=== PATIENT | female | born 1995 | race American Indian/Alaskan Native ===

== ENCOUNTER 2017-09-24 16:27 | Emergency (ER) | payer MEDICAID ==
[2017-09-24 17:00] VITALS: BP 124/68
--- NOTE | 2017-09-24 17:38 | Emergency Department Report ---
Suture/Staple Removal - [facility] Chief Complaint: Laceration/Recheck/Suture Stated Complaint: STUTURE REMOVAL Time Seen by Provider: 09/24/17 17:07 When Sutures or [place] Placed: >14 Days Ago Wound Location: Forehead ED Review of Systems ROS: Stated complaint: STUTURE REMOVAL Other details as noted in HPI Constitutional: denies: chills, fever Eyes: denies: eye pain, eye discharge, vision change ENT: denies: ear pain, throat pain Respiratory: denies: cough, shortness of breath, wheezing Cardiovascular: denies: chest pain, palpitations Endocrine: no symptoms reported Gastrointestinal: denies: abdominal pain, nausea, diarrhea Genitourinary: denies: urgency, dysuria, discharge Musculoskeletal: denies: back pain, joint swelling, arthralgia Skin: denies: rash, lesions Neurological: denies: headache, weakness, paresthesias Psychiatric: denies: anxiety, depression Hematological/Lymphatic: denies: easy bleeding, easy bruising ED Past Medical Hx - Past Medical History Previous Medical History?: No - Surgical History Past Surgical History?: No Additional Surgical History: - Social History Smoking Status: Never Smoker Substance Use Type: None Suture Removal Exam - Exam General: Vital signs noted. No distress. Alert and acting appropriately. Wound: No Pathologic Erythema, No Tenderness, No Drainage, No Pus, No Wound Dehiscence Other Systems: All other systems reviewed and are unremarkable. ED Course Vital Signs 09/24/17 16:58 Temperature 97.8 F Pulse Rate 82 Respiratory 18 Rate Blood Pressure 124/68 O2 Sat by Pulse 100 Oximetry Critical care attestation.: If time is entered above; I have spent that time in minutes in the direct care of this critically ill patient, excluding procedure time. ED Disposition Clinical Impression: Visit for suture removal Disposition: DC-01 TO HOME OR SELFCARE Is pt being admited?: No Does the pt Need Aspirin: No Condition: Stable Instructions: Acute Wound Care (ED) Additional Instructions: Make sure to follow up with the primary care physician as discussed. Take all your medications as you've been prescribed. If you have any worsening symptoms or develop new symptoms please return to ED immediately. Referrals: [facility] [Outside] - 3-5 Days [facility] [Outside] - 3-5 Days Forms: Accompanied Note, Work/School Release Form(ED) Time of Disposition: 17:37
== END 2017-09-24 17:44 | disposition home or self-care (01) ==
LOC: ED 16:27
DX: S01.81XD Laceration without foreign body of other part of head, subsequent encounter (principal); Z91.041 Radiographic dye allergy status; Z91.013 Allergy to seafood; Z88.6 Allergy status to analgesic agent; W45.8XXD Other foreign body or object entering through skin, subsequent encounter

== ENCOUNTER 2017-10-08 18:52 | Emergency (ER) | payer MEDICAID ==
[2017-10-08 20:14] VITALS: BP 136/76
[2017-10-08] MEDS ORDERED: MOTRIN ONE (23:17)
[2017-10-08] MEDS ORDERED: MOTRIN PO ONE (23:19)
== END 2017-10-08 23:21 | disposition left against medical advice (07) ==
LOC: ED 18:52
DX: M54.9 Dorsalgia, unspecified (principal); Z53.21 Procedure and treatment not carried out due to patient leaving prior to being seen by health care provider; V89.2XXA Person injured in unspecified motor-vehicle accident, traffic, initial encounter; Y93.89 Activity, other specified; Y99.8 Other external cause status; Y92.410 Unspecified street and highway as the place of occurrence of the external cause